=== PATIENT | male | born 1940 | race American Indian/Alaskan Native ===

== ENCOUNTER 2017-04-03 13:05 | Outpatient (CLI) | payer OTHER, MEDICARE ==
[2017-04-03 14:31] LABS: Blood Urea Nitrogen 13 mg/dL (9-20)
--- NOTE | 2017-04-03 15:47 | Magnetic Resonance Report ---
MRI OF THE BRAIN WITHOUT CONTRAST: HISTORY: CVA PROCEDURE: Multiplanar, multisequence MR imaging of the brain without IV contrast was performed. FINDINGS: The brain parenchyma signal intensity and its adkins white interface are within normal limits on all sequences. No evidence for acute ischemia, hemorrhage or mass. No chronic infarct or extra-axial fluid collection. The midline structures are central. The basal cisterns are patent. Normal ventricular size. The orbital cavities and sella turcica demonstrate no abnormality. The right maxillary sinus is nearly opacified with fluid and mucosal thickening. The remaining paranasal sinuses are clear. IMPRESSION: Unremarkable non-enhanced MRI of the brain. No acute intracranial process. Advanced right maxillary sinus disease. Correlate for acute symptoms.
--- NOTE | 2017-04-03 15:49 | Magnetic Resonance Report ---
MRA NECK WITH AND WITHOUT CONTRAST HISTORY: Vertebral artery stenosis. TECHNIQUE: [id number] imaging with MIP reformations of the carotid arterial system is submitted. FINDINGS: The carotid arteries and cervical vertebral arteries appear widely patent free of hemodynamically significant stenosis or aneurysm dilatation. IMPRESSION: Normal MR angiography of the carotid arterial system. No vertebral artery stenosis is appreciated.
== END 2017-04-03 13:06 | disposition home or self-care (01) ==
LOC: MRI 13:05
PROVIDERS: ATTEND Family Medicine
DX: J32.0 Chronic maxillary sinusitis (principal)
CPT/HCPCS: 36415; 70549; 70551; 82565; 84520; A9577

== ENCOUNTER 2017-06-07 10:23 | Outpatient (CLI) | payer OTHER, MEDICARE ==
--- NOTE | 2017-06-07 12:24 | XRay Report ---
Bilateral knees: History: Knee pain. Findings: Right knee: There is mild narrowing noted of the medial and lateral compartment of right knee joint and moderate narrowing of the patellofemoral compartment. Sclerotic articular surfaces with peripheral osteophytes suggestive severe degenerative changes. This is more pronounced than the lateral compartment the patellofemoral compartment. Left knee: Minimal narrowing of lateral compartment with moderate narrowing of medial and patellofemoral compartment of left knee joint. Degenerative changes of the adjacent articular surfaces. Bilaterally no evidence of joint effusion. Bilaterally large anterior superior and anteroinferior spurs patellae. Impression: Degenerative changes bilaterally being more pronounced at right knee.
== END 2017-06-07 10:24 | disposition home or self-care (01) ==
LOC: XRAY 10:23
PROVIDERS: ATTEND Orthopaedic Surgery
DX: M17.0 Bilateral primary osteoarthritis of knee (principal)

== ENCOUNTER 2018-01-29 10:29 | Outpatient (CLI) | payer OTHER, MEDICARE ==
--- NOTE | 2018-01-29 14:13 | Magnetic Resonance Report ---
MRI UPPER EXTREMITY JOINT LEFT WITHOUT CONTRAST History: Left shoulder pain. Technique: Multisequence, multiplanar MRI without contrast. Comparison: None. Findings: Complete rupture and retraction of the supraspinatus tendon, infraspinatus tendon and subscapularis tendon are identified. The teres minor tendon remains intact. The biceps tendon and its anchor upon the superior labrum is not confidently identified and presumably ruptured. Large joint effusion and bursal fluid is identified. The bone marrow signal is within normal limits. There is no evidence for fracture or bone lesion. Moderate osteoarthritic changes are identified. No gross labral defect is appreciated. IMPRESSION: Complete rupture of the supraspinatus, infraspinatus and subscapularis tendons. Probable rupture of the long head of the biceps tendon. Large joint effusion. Osteoarthritis.
== END 2018-01-29 10:30 | disposition home or self-care (01) ==
LOC: MRI 10:29
PROVIDERS: ATTEND Family Medicine
DX: S46.812A Strain of other muscles, fascia and tendons at shoulder and upper arm level, left arm, initial encounter (principal); M19.012 Primary osteoarthritis, left shoulder; X58.XXXA Exposure to other specified factors, initial encounter; Y93.89 Activity, other specified; Y92.89 Other specified places as the place of occurrence of the external cause; Y99.8 Other external cause status